=== PATIENT | male | born 1985 | race Caucasian/White ===

== ENCOUNTER 2018-01-11 22:48 | Inpatient (IN) | payer SELFPAY ==
[~2018-01-11] VITALS: Ht 165.1 cm; Wt 68.0 kg
[2018-01-11 22:54] VITALS: BP 118/72; PULSE 94; RESP 16; TEMP 98.6; O2SAT 100
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
[2018-01-11] MEDS ORDERED: LACTATED RINGER'S 1000 ML INJ 1,000 ML IV SCH (23:11)
[2018-01-11] MEDS ORDERED: MORPHINE SULFATE 8 MG/ML INJ IV PUSH PRN (23:15)
[2018-01-11] MEDS ORDERED: CHLORHEXIDINE GLUCONATE 2 % 1 PACK (2 CLOTHS) TOP PRN (23:15)
[2018-01-11] MEDS ORDERED: MISCELLANEOUS NURSING INFORMATION XX SCH (23:15)
[2018-01-11] MEDS ORDERED: ONDANSETRON HCL 4 MG/2 ML VIAL IV PUSH PRN (23:15)
[2018-01-12] VITALS: O2SAT 100
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
[2018-01-12 01:50] VITALS: BP 116/68; PULSE 83; RESP 18; TEMP 98.4; O2SAT 100
[2018-01-12] MEDS ORDERED: CHLORHEXIDINE GLUCONATE 2 % 1 PACK (2 CLOTHS) TOP SCH (04:00)
[2018-01-12] MEDS ORDERED: MORPHINE SULFATE 4 MG/ML INJ IV PUSH PRN (06:15)
[2018-01-12] MEDS ORDERED: LACTULOSE SYRUP 20 GM/30 ML CUP PO PRN (06:15)
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
[2018-01-12 08:00] VITALS: BP 111/56; PULSE 85; RESP 18; TEMP 98.5; O2SAT 96
[2018-01-12] MEDS ORDERED: DOCUSATE SODIUM 100 MG CAP PO SCH (09:00)
[2018-01-12] MEDS ORDERED: DOCUSATE SODIUM 50 MG/SENNA 8.6 MG TAB PO SCH (09:00)
[2018-01-12] MEDS ORDERED: LIDOCAINE HCL 5% PATCH T-DERMAL SCH (09:00)
[2018-01-12] MEDS: METHOCARBAMOL 500 MG TAB PO SCH ×2 (10:38→14:26)
[2018-01-12 10:47] LABS: AUTOMATED NEUTROPHIL # 4.8 TH/MM3 (1.8-7.7); BASOPHIL % 0.2 % (0.0-2.0); EOSINOPHIL # 0.1 TH/MM3 (0-0.4); EOSINOPHIL % 1.1 % (0.0-4.0); HEMATOCRIT 38.7 % (39.0-51.0); HEMOGLOBIN 13.6 GM/DL (13.0-17.0); LYMPH % 19.5 % (9.0-44.0); LYMPHOCYTE # 1.4 TH/MM3 (1.0-4.8); MEAN CELL VOLUME 89.3 FL (80.0-100.0); MEAN CORPUSCULAR HEMOGLOBIN 31.3 PG (27.0-34.0); MEAN PLATELET VOLUME 9.2 FL (7.0-11.0); MONO % 10.9 % (0.0-8.0); MONOCYTE # 0.8 TH/MM3 (0-0.9); NEUT % 68.3 % (16.0-70.0); PLATELET COUNT 162 TH/MM3 (150-450); RED BLOOD COUNT 4.33 MIL/MM3 (4.50-5.90); RED CELL DISTRIBUTION WIDTH 12.7 % (11.6-17.2)
[2018-01-12 11:16] LABS: BICARBONATE 25.6 MEQ/L (21.0-32.0); CALCIUM 8.5 MG/DL (8.5-10.1); CREATININE 0.8 MG/DL (0.60-1.30)
[2018-01-12 12:00] VITALS: BP 110/58; PULSE 65; RESP 18; TEMP 99; O2SAT 97
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
[2018-01-12] MEDS ORDERED: PERC5TAB12 PO (14:00)
[2018-01-12] MEDS ORDERED: METH500T3 PO (14:17)
[2018-01-12] MEDS ORDERED: CRUTMIS25 (14:51)
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
== END 2018-01-12 15:23 | disposition home or self-care (01) | DRG 552 ==
LOC: NEPC 22:48 → NEDA 23:08
PROVIDERS: ADMIT Surgery Trauma Surgery; ATTEND Surgery Trauma Surgery
DX: S32.029A Unspecified fracture of second lumbar vertebra, initial encounter for closed fracture (principal); S22.31XA Fracture of one rib, right side, initial encounter for closed fracture; S82.64XA Nondisplaced fracture of lateral malleolus of right fibula, initial encounter for closed fracture; V29.88XA Motorcycle rider (driver) (passenger) injured in other specified transport accidents, initial encounter; Y93.89 Activity, other specified; Y92.39 Other specified sports and athletic area as the place of occurrence of the external cause
CPT/HCPCS: 71045; 73610; 80048; 85025; 94150; 99283; J7120; L0200; L0484; L2114